=== PATIENT | male | born 1960 | race African-American/Black ===

== ENCOUNTER 2024-04-29 19:08 | Inpatient (IN) | payer MEDICAID ==
[~2024-04-29] VITALS: Ht 172.7 cm; Wt 64.9 kg
[~2024-04-29 19:08] MED LIST: ASPI-1406 MT; NAPR-1176 MT; QUET300T2 PO
[2024-04-29 20:00] VITALS: BP 104/61; PULSE 118; RESP 20; TEMP 36.9; O2SAT 98
[2024-04-29 20:07] LABS: HEMATOCRIT. 30.5 % (42.0-52.0); HEMOGLOBIN. 10.1 g/dL (14.0-18.0); MEAN CORPUSCULAR HEMOGLOBIN 32.7 pg (28.0-32.0); MEAN CORPUSCULAR HGB CONC 33.2 g/dL (31.0-37.0); MEAN CORPUSCULAR VOLUME 98.3 fL (80.0-94.0); MEAN PLATELET VOLUME 7.6 fl (7.4-10.4); PLATELET 515 x1000/uL (130-400); RED CELL DISTRIBUTION WIDTH 13.5 % (11.6-14.6); WHITE BLOOD COUNT 27.3 x1000/uL (4.5-11.0)
[2024-04-29 20:10] LABS: DIFFERENTIAL COMMENT 1
[2024-04-29 20:14] LABS: CHLORIDE 109 mEq/L (98-107)
[2024-04-29 20:15] LABS: POTASSIUM 3.2 mEq/L (3.5-5.1); SODIUM 141 mEq/L (136-145)
[2024-04-29 20:16] LABS: CARBON DIOXIDE 16 mEq/L (21-32)
[2024-04-29 20:21] LABS: CREATININE 0.6 mg/dL (0.6-1.3); GLUCOSE 112 mg/dL (70-105); UREA NITROGEN BLOOD 11 mg/dL (9-23)
[2024-04-29 20:22] LABS: TROPONIN I HIGH SENSITIVITY 12 ng/L (3.0-53)
[2024-04-29 20:27] LABS: D-DIMER 5.22 mg/L FEU (<0.50); PROTHROMBIN TIME 10.8 sec (9.6-11.0)
[2024-04-29] MEDS ORDERED: HYDROMORPHONE HCL/PF 2MG/ML INJ IV NR (20:30)
[2024-04-29 20:32] LABS: PLATELET ESTIMATE SLIGHTLY INCREASED
[2024-04-29] MEDS: HYDROMORPHONE HCL/PF 1MG/ML INJ IV NR (20:57)
[2024-04-29] MEDS ORDERED: ONDANSETRON HCL 4MG/2ML INJ IV PRN (22:30)
[2024-04-29 22:40] LABS: TROPONIN I HIGH SENSITIVITY 15 ng/L (3.0-53)
[2024-04-29] MEDS ORDERED: NALOXONE HCL 0.4MG/ML VIAL IV PRN (22:45)
[2024-04-29] MEDS: SODIUM CHLORIDE 0.9% 1,000 ML IV SCH (22:50)
[2024-04-29] MEDS: VANCOMYCIN 1.5GM/250ML 250 ML IV NR (22:50)
[2024-04-29 23:10] VITALS: BP 165/95; PULSE 118; RESP 20; TEMP 36.9
[2024-04-29] MEDS: SODIUM CHLORIDE 0.9% (SEPSIS BOLUS) IV ONE (23:30)
[2024-04-29] MEDS: MORPHINE SULFATE 2 MG/ML INJ (NOT FOR IM USE) IV PRN (23:58)
[2024-04-29] MEDS: PIPERACILLIN/TAZO 3.375G/50ML 50 ML IV ONE (23:59)
[2024-04-29] MEDS: VANCOMYCIN 1.25GM/250ML 250 ML IV SCH (23:59)
[2024-04-30] MEDS: ZOLPIDEM TARTRATE 5MG TABLET PO PRN (00:58)
[2024-04-30] MEDS: HYDROCODONE/ACETAMINOPHEN 5/325MG TABLET PO PRN (00:58)
[2024-04-30] MEDS: DIPHENHYDRAMINE 50MG/ML VIAL IV PRN (01:28)
[2024-04-30 03:19] LABS: LACTIC ACID 2.5 mmol/L (0.4-2.0)
[2024-04-30 04:00] VITALS: BP 104/61; PULSE 65; RESP 20; TEMP 37.2; O2SAT 98
[2024-04-30] MEDS: HYDROCODONE/ACETAMINOPHEN 10/325MG TABLET PO PRN (04:36)
[2024-04-30] MEDS: ACETAMINOPHEN 325MG TABLET PO PRN (04:43)
[2024-04-30 07:47] LABS: HEMATOCRIT. 32.6 % (42.0-52.0); HEMOGLOBIN. 10.7 g/dL (14.0-18.0); MEAN CORPUSCULAR HEMOGLOBIN 32.1 pg (28.0-32.0); MEAN CORPUSCULAR HGB CONC 32.8 g/dL (31.0-37.0); MEAN CORPUSCULAR VOLUME 97.8 fL (80.0-94.0); MEAN PLATELET VOLUME 8.3 fl (7.4-10.4); PLATELET 593 x1000/uL (130-400); RED BLOOD CELL COUNT 3.33 mill/uL (4.7-6.1); RED CELL DISTRIBUTION WIDTH 13.3 % (11.6-14.6); WHITE BLOOD COUNT 33.6 x1000/uL (4.5-11.0)
[2024-04-30 07:55] LABS: CHLORIDE 107 mEq/L (98-107); POTASSIUM 3.7 mEq/L (3.5-5.1); SODIUM 139 mEq/L (136-145)
[2024-04-30 07:56] LABS: CALCIUM 9.3 mg/dL (8.7-10.4); CARBON DIOXIDE 21 mEq/L (21-32); DIFFERENTIAL COMMENT 1
[2024-04-30 08:00] VITALS: BP 111/85; PULSE 99; RESP 17; TEMP 36.6; O2SAT 95
[2024-04-30] MEDS ORDERED: VANCOMYCIN 1GM/200ML PMX (BAXTER) IV SCH (08:00)
[2024-04-30 08:01] LABS: CREATININE 0.6 mg/dL (0.6-1.3); GLUCOSE 106 mg/dL (70-105); UREA NITROGEN BLOOD 10 mg/dL (9-23)
[2024-04-30] MEDS: ENOXAPARIN 80MG/0.8ML SYR SUBCUT SCH (08:35)
[2024-04-30] MEDS: ASPIRIN 81MG EC TABLET PO SCH (08:35)
[2024-04-30] MEDS: PANTOPRAZOLE SODIUM 40 MG/VIAL IV SCH (09:17)
[2024-04-30 10:21] LABS: PLATELET ESTIMATE INCREASED
[2024-04-30] MEDS: VANCOMYCIN 1G PREMIX 200 ML IV SCH (11:51)
[2024-04-30 12:00] VITALS: BP 136/63; PULSE 99; RESP 18; TEMP 36.1; O2SAT 95
[2024-04-30 16:00] VITALS: BP 148/78; PULSE 98; RESP 17; TEMP 36.1; O2SAT 95
[2024-04-30 20:00] VITALS: BP 150/64; PULSE 83; RESP 17; TEMP 37.1; O2SAT 98
[2024-04-30] MEDS ORDERED: QUETIAPINE FUMARATE 50MG TABLET PO SCH (21:00)
[2024-04-30] MEDS ORDERED: SERTRALINE HCL 100MG TABLET PO SCH (22:07)
[2024-04-30] MEDS: PIPERACILLIN/TAZO 3.375G/50ML 50 ML IV SCH (23:23)
[2024-05-01] VITALS: BP 137/73; PULSE 107; RESP 17; TEMP 37.1; O2SAT 95
[2024-05-01 08:12] LABS: HEMATOCRIT. 30.8 % (42.0-52.0); HEMOGLOBIN. 10.2 g/dL (14.0-18.0); MEAN CORPUSCULAR HEMOGLOBIN 32.4 pg (28.0-32.0); MEAN CORPUSCULAR HGB CONC 33.1 g/dL (31.0-37.0); MEAN CORPUSCULAR VOLUME 97.9 fL (80.0-94.0); MEAN PLATELET VOLUME 8.5 fl (7.4-10.4); PLATELET 588 x1000/uL (130-400); RED BLOOD CELL COUNT 3.15 mill/uL (4.7-6.1); RED CELL DISTRIBUTION WIDTH 13.6 % (11.6-14.6); WHITE BLOOD COUNT 35.3 x1000/uL (4.5-11.0)
[2024-05-01 08:19] LABS: CHLORIDE 109 mEq/L (98-107); POTASSIUM 3.7 mEq/L (3.5-5.1); SODIUM 140 mEq/L (136-145)
[2024-05-01 08:20] LABS: CARBON DIOXIDE 22 mEq/L (21-32)
[2024-05-01 08:21] LABS: CALCIUM 9.1 mg/dL (8.7-10.4)
[2024-05-01 08:25] LABS: CREATININE 0.6 mg/dL (0.6-1.3); GLUCOSE 103 mg/dL (70-105); UREA NITROGEN BLOOD 13 mg/dL (9-23)
[2024-05-01 08:54] LABS: DIFFERENTIAL COMMENT 1
[2024-05-01 10:57] LABS: PLATELET ESTIMATE INCREASED
[2024-05-01 12:00] VITALS: BP 108/63; PULSE 117; RESP 19; TEMP 36.9; O2SAT 70
[2024-05-01 15:38] LABS: BG BASE EXCESS -5.7 mmol/L (-2.0-3.0); BG CARBOXYHEMOGLOBIN 0.3 % (0.5-1.5); BG DEOXYHEMOGLOBIN 1.4 % (0.0-5.0); BG FRACTION INSPIRED OXYGEN 100; BG HCO3 ACT 17.1 mmol/L (21.0-28.0); BG METHEMOGLOBIN 0.3 % (0.5-1.5); BG OXYGEN SATURATION 98.6 % (94.0-98.0); BG PCO2 25.3 mmHg (35.0-48.0); BG PH 7.447 (7.350-7.450); BG PO2 121.9 mmHg (83.0-108.0); BG SAMPLE SITE LEFT RADIAL; BG TOTAL HEMOGLOBIN 10.4 g/dL (13.5-17.5); BG VENT MODE MASK - NRB
[2024-05-01 16:00] VITALS: BP 93/81; PULSE 102; RESP 24; TEMP 36.3; O2SAT 100
[2024-05-01 18:00] VITALS: BP 146/85; PULSE 96; RESP 21; O2SAT 97
[2024-05-01 20:00] VITALS: BP 138/78; TEMP 36.6
[2024-05-01] MEDS: QUETIAPINE FUMARATE 200MG TABLET PO SCH (20:34)
[2024-05-01 22:00] VITALS: BP 122/66; PULSE 150; RESP 21; O2SAT 94
[2024-05-01] MEDS: HYDROMORPHONE HCL/PF 1MG/ML INJ IV PRN (22:33)
[2024-05-01] MEDS: VANCOMYCIN 1G PREMIX 200 ML IV SCH (22:38)
[2024-05-02] VITALS (15 sets, daily range): BP systolic 126–199; BP diastolic 8–91; PULSE 14–145; RESP 18–35; TEMP 36.7–38.3; O2SAT 80–100
[2024-05-02 10:49] LABS: CHLORIDE 109 mEq/L (98-107)
[2024-05-02 10:50] LABS: CARBON DIOXIDE 22 mEq/L (21-32); POTASSIUM 3.7 mEq/L (3.5-5.1); SODIUM 141 mEq/L (136-145)
[2024-05-02 10:51] LABS: CALCIUM 8.9 mg/dL (8.7-10.4)
[2024-05-02 10:56] LABS: CREATININE 0.6 mg/dL (0.6-1.3); GLUCOSE 100 mg/dL (70-105); UREA NITROGEN BLOOD 11 mg/dL (9-23)
[2024-05-02 10:57] LABS: HEMATOCRIT. 28.4 % (42.0-52.0); HEMOGLOBIN. 9.4 g/dL (14.0-18.0); MEAN CORPUSCULAR HEMOGLOBIN 32.2 pg (28.0-32.0); MEAN CORPUSCULAR VOLUME 97.5 fL (80.0-94.0); MEAN PLATELET VOLUME 7.9 fl (7.4-10.4); PLATELET 271 x1000/uL (130-400); RED BLOOD CELL COUNT 2.91 mill/uL (4.7-6.1); RED CELL DISTRIBUTION WIDTH 13.6 % (11.6-14.6); WHITE BLOOD COUNT 24.2 x1000/uL (4.5-11.0)
[2024-05-02 11:18] LABS: DIFFERENTIAL COMMENT 1
[2024-05-02] MEDS: HYDROMORPHONE HCL/PF 1MG/ML INJ IV PRN (12:25)
[2024-05-02 14:17] LABS: BG BASE EXCESS -4.5 mmol/L (-2.0-3.0); BG CARBOXYHEMOGLOBIN 0.3 % (0.5-1.5); BG DEOXYHEMOGLOBIN 10.5 % (0.0-5.0); BG FRACTION INSPIRED OXYGEN 100; BG HCO3 ACT 18.4 mmol/L (21.0-28.0); BG METHEMOGLOBIN 0.3 % (0.5-1.5); BG OXYGEN SATURATION 89.4 % (94.0-98.0); BG OXYHEMOGLOBIN 88.9 % (94.0-98.0); BG PCO2 27.3 mmHg (35.0-48.0); BG PH 7.447 (7.350-7.450); BG PO2 58.1 mmHg (83.0-108.0); BG SAMPLE SITE RIGHT RADIAL; BG TOTAL HEMOGLOBIN 10.4 g/dL (13.5-17.5); BG VENT MODE MASK - NRB
[2024-05-02] MEDS: IOHEXOL-350 100 ML BOTTLE ONE (14:59)
[2024-05-02] MEDS: LOSARTAN 50 MG TABLET PO NR (16:43)
[2024-05-02 18:12] LABS: BG BASE EXCESS -2.2 mmol/L (-2.0-3.0); BG CARBOXYHEMOGLOBIN 0.7 % (0.5-1.5); BG DEOXYHEMOGLOBIN 14.1 % (0.0-5.0); BG FRACTION INSPIRED OXYGEN 100; BG HCO3 ACT 20.8 mmol/L (21.0-28.0); BG METHEMOGLOBIN 0.1 % (0.5-1.5); BG OXYGEN SATURATION 85.8 % (94.0-98.0); BG OXYHEMOGLOBIN 85.1 % (94.0-98.0); BG PCO2 29.7 mmHg (35.0-48.0); BG PH 7.463 (7.350-7.450); BG SAMPLE SITE LEFT BRACHIAL; BG TOTAL HEMOGLOBIN 10.3 g/dL (13.5-17.5); BG VENT MODE HIGH FLOW
[2024-05-02] MEDS: ATORVASTATIN CALCIUM 40MG TABLET PO SCH (20:16)
[2024-05-02 20:57] LABS: PLATELET ESTIMATE NORMAL
[2024-05-03] VITALS (83 sets, daily range): BP systolic 65–157; BP diastolic 18–94; PULSE 74–153; RESP 13–37; TEMP 36.2–37.7; O2SAT 87–100
[2024-05-03] MEDS: NOREPINEPHRINE 8MG/250ML PMX 250 ML IV PRN (01:08)
[2024-05-03] MEDS: PROPOFOL 10MG/ML 100ML 100 ML IV PRN (01:08)
[2024-05-03] MEDS: FENTANYL 2500MCG/250ML PMX 250 ML IV PRN (01:21)
[2024-05-03] MEDS: VASOPRESSIN 20 UNIT in SODIUM CHLORIDE 0.9% 99 ML IV PRN (01:21)
[2024-05-03 01:24] LABS: BG BASE EXCESS -8.9 mmol/L (-2.0-3.0); BG CARBOXYHEMOGLOBIN 0.7 % (0.5-1.5); BG DEOXYHEMOGLOBIN 8.3 % (0.0-5.0); BG FRACTION INSPIRED OXYGEN 100; BG HCO3 ACT 22.1 mmol/L (21.0-28.0); BG METHEMOGLOBIN 0.1 % (0.5-1.5); BG OXYGEN SATURATION 91.6 % (94.0-98.0); BG OXYHEMOGLOBIN 90.9 % (94.0-98.0); BG PH 7.059 (7.350-7.450); BG PO2 90.9 mmHg (83.0-108.0); BG SAMPLE SITE RIGHT RADIAL; BG TOTAL HEMOGLOBIN 10.3 g/dL (13.5-17.5); BG TOTAL RESPIRATORY RATE 18 b/min; BG VENT MODE VENT - AC
[2024-05-03 02:14] LABS: HEMATOCRIT 24.3 % (42.0-52.0); HEMOGLOBIN 7.8 g/dL (14.0-18.0); MEAN CORPUSCULAR HEMOGLOBIN 31.1 pg (28.0-32.0); MEAN CORPUSCULAR VOLUME 97.1 fL (80.0-94.0); PLATELET 170 x1000/uL (130-400); WHITE BLOOD COUNT 28.4 x1000/uL (4.5-11.0)
[2024-05-03 02:29] LABS: CHLORIDE 107 mEq/L (98-107); POTASSIUM 3.8 mEq/L (3.5-5.1); SODIUM 139 mEq/L (136-145)
[2024-05-03 02:30] LABS: CALCIUM 8.3 mg/dL (8.7-10.4); CARBON DIOXIDE 24 mEq/L (21-32)
[2024-05-03 02:35] LABS: CREATININE 0.8 mg/dL (0.6-1.3); GLUCOSE 195 mg/dL (70-105); UREA NITROGEN BLOOD 11 mg/dL (9-23)
[2024-05-03 02:36] LABS: CREATINE KINASE MB FRACTION 13.8 ng/mL (0.5-3.6)
[2024-05-03 02:37] LABS: PHOSPHORUS 5.4 mg/dL (2.5-4.9)
[2024-05-03 03:24] LABS: BG BASE EXCESS -5.4 mmol/L (-2.0-3.0); BG CARBOXYHEMOGLOBIN 0.8 % (0.5-1.5); BG DEOXYHEMOGLOBIN 0.8 % (0.0-5.0); BG FRACTION INSPIRED OXYGEN 100; BG METHEMOGLOBIN 0.3 % (0.5-1.5); BG OXYGEN SATURATION 99.2 % (94.0-98.0); BG OXYHEMOGLOBIN 98.1 % (94.0-98.0); BG PCO2 38.6 mmHg (35.0-48.0); BG PH 7.332 (7.350-7.450); BG PO2 148.1 mmHg (83.0-108.0); BG SAMPLE SITE RIGHT RADIAL; BG TOTAL HEMOGLOBIN 7.8 g/dL (13.5-17.5); BG TOTAL RESPIRATORY RATE 26 b/min; BG VENT MODE VENT - AC
[2024-05-03 06:52] LABS: CARBON DIOXIDE 22 mEq/L (21-32); CHLORIDE 109 mEq/L (98-107); POTASSIUM 3.7 mEq/L (3.5-5.1); SODIUM 140 mEq/L (136-145)
[2024-05-03 06:58] LABS: CREATININE 0.7 mg/dL (0.6-1.3); GLUCOSE 142 mg/dL (70-105); UREA NITROGEN BLOOD 11 mg/dL (9-23)
[2024-05-03] MEDS ORDERED: ETOMIDATE 2MG/ML 10ML VIAL IV ONE (07:22)
[2024-05-03] MEDS ORDERED: CALCIUM CHLORIDE 1GM/10ML SYR IV ONE (07:43)
[2024-05-03] MEDS: LOSARTAN 50 MG TABLET PO SCH (08:12)
[2024-05-03] MEDS ORDERED: DEXAMETHASONE 10 MG/ML VIAL IV SCH (12:00)
[2024-05-03 12:57] LABS: BG BASE EXCESS -3.7 mmol/L (-2.0-3.0); BG CARBOXYHEMOGLOBIN 0.4 % (0.5-1.5); BG DEOXYHEMOGLOBIN 0.3 % (0.0-5.0); BG FRACTION INSPIRED OXYGEN 100; BG HCO3 ACT 19.6 mmol/L (21.0-28.0); BG METHEMOGLOBIN 0.2 % (0.5-1.5); BG OXYGEN SATURATION 99.7 % (94.0-98.0); BG OXYHEMOGLOBIN 99.1 % (94.0-98.0); BG PCO2 28.1 mmHg (35.0-48.0); BG PH 7.461 (7.350-7.450); BG PO2 234.6 mmHg (83.0-108.0); BG SAMPLE SITE LEFT RADIAL; BG TOTAL HEMOGLOBIN 7.5 g/dL (13.5-17.5); BG TOTAL RESPIRATORY RATE 30 b/min; BG VENT MODE VENT - AC
[2024-05-03] MEDS: HYDROCORTISONE SOD SUCCINATE 100 MG/2 ML VIAL IV SCH (15:12)
[2024-05-03] MEDS: VANCOMYCIN 1.25GM/250ML 250 ML IV SCH (21:33)
[2024-05-04] VITALS (82 sets, daily range): BP systolic 103–142; BP diastolic 63–95; PULSE 61–111; RESP 12–28; TEMP 36.9–37.1; O2SAT 93–100
[2024-05-04] MEDS: PROPOFOL 10MG/ML 100ML 100 ML IV PRN (06:32)
[2024-05-04 13:59] LABS: BG BASE EXCESS -3.8 mmol/L (-2.0-3.0); BG CARBOXYHEMOGLOBIN 0.7 % (0.5-1.5); BG DEOXYHEMOGLOBIN 9.7 % (0.0-5.0); BG FRACTION INSPIRED OXYGEN 50; BG HCO3 ACT 20.1 mmol/L (21.0-28.0); BG METHEMOGLOBIN 0.1 % (0.5-1.5); BG OXYGEN SATURATION 90.2 % (94.0-98.0); BG OXYHEMOGLOBIN 89.5 % (94.0-98.0); BG PCO2 31.6 mmHg (35.0-48.0); BG PH 7.421 (7.350-7.450); BG PO2 59.4 mmHg (83.0-108.0); BG SAMPLE SITE RIGHT RADIAL; BG TOTAL HEMOGLOBIN 7.9 g/dL (13.5-17.5); BG VENT MODE VENT - AC
[2024-05-04] MEDS: AZITHROMYCIN 500MG/250ML 250 ML IV SCH (15:50)
[2024-05-04] MEDS: ENOXAPARIN 60MG/0.6ML SYR SUBCUT SCH (21:34)
[2024-05-05] VITALS (102 sets, daily range): BP systolic 50–163; BP diastolic 71–124; PULSE 52–99; RESP 11–40; TEMP 36.3–36.9; O2SAT 95–100
[2024-05-05] MEDS: TAMSULOSIN HCL 0.4MG SR CAPSULE PO SCH (08:23)
[2024-05-05] MEDS: FINASTERIDE 5MG TABLET PO SCH (08:23)
[2024-05-05] MEDS: IPRATROPIUM/ALBUTEROL 0.5-3(2.5)MG/3ML NEB NEB PRN (08:49)
[2024-05-05] MEDS: ACETYLCYSTEINE 200MG/ML 20% VIAL 4ML INH SCH (08:49)
[2024-05-05] MEDS: PROPOFOL 10MG/ML 100ML 100 ML IV PRN (09:07)
[2024-05-05 13:28] LABS: BG BASE EXCESS -4.7 mmol/L (-2.0-3.0); BG CARBOXYHEMOGLOBIN 0.3 % (0.5-1.5); BG DEOXYHEMOGLOBIN 2.3 % (0.0-5.0); BG FRACTION INSPIRED OXYGEN 50; BG HCO3 ACT 19.9 mmol/L (21.0-28.0); BG METHEMOGLOBIN 0.3 % (0.5-1.5); BG OXYGEN SATURATION 97.7 % (94.0-98.0); BG OXYHEMOGLOBIN 97.1 % (94.0-98.0); BG PCO2 34.7 mmHg (35.0-48.0); BG PH 7.377 (7.350-7.450); BG PO2 101.7 mmHg (83.0-108.0); BG SAMPLE SITE RIGHT RADIAL; BG TOTAL HEMOGLOBIN 8.8 g/dL (13.5-17.5); BG VENT MODE VENT - AC
[2024-05-05] MEDS: DEXMEDETOMIDINE 400 MCG/100 ML 100 ML IV PRN (13:49)
[2024-05-06] VITALS (113 sets, daily range): BP systolic 114–178; BP diastolic 62–99; PULSE 51–130; RESP 13–34; TEMP 36.4–37; O2SAT 90–100
[2024-05-06] MEDS: HYDRALAZINE 20MG/ML VIAL IV PRN (06:51)
[2024-05-06 14:32] LABS: BG BASE EXCESS -4.7 mmol/L (-2.0-3.0); BG CARBOXYHEMOGLOBIN 0.3 % (0.5-1.5); BG DEOXYHEMOGLOBIN 2.8 % (0.0-5.0); BG FRACTION INSPIRED OXYGEN 40; BG HCO3 ACT 18.6 mmol/L (21.0-28.0); BG METHEMOGLOBIN 0.3 % (0.5-1.5); BG OXYGEN SATURATION 97.2 % (94.0-98.0); BG OXYHEMOGLOBIN 96.6 % (94.0-98.0); BG PCO2 28.1 mmHg (35.0-48.0); BG PH 7.438 (7.350-7.450); BG PO2 97.4 mmHg (83.0-108.0); BG SAMPLE SITE RIGHT RADIAL; BG TOTAL HEMOGLOBIN 9.6 g/dL (13.5-17.5); BG VENT MODE VENT - CPAP
[2024-05-06] MEDS: VANCOMYCIN 750MG PREMIX 150 ML IV SCH (17:40)
[2024-05-06] MEDS: AMLODIPINE 5MG TABLET PO SCH (21:26)
[2024-05-07] VITALS (50 sets, daily range): BP systolic 125–167; BP diastolic 63–90; PULSE 74–104; RESP 15–32; TEMP 36.7–37.2; O2SAT 86–98
[2024-05-07 13:04] LABS: BG BASE EXCESS -0.2 mmol/L (-2.0-3.0); BG CARBOXYHEMOGLOBIN 0.6 % (0.5-1.5); BG DEOXYHEMOGLOBIN 10.1 % (0.0-5.0); BG FRACTION INSPIRED OXYGEN 44; BG HCO3 ACT 21.2 mmol/L (21.0-28.0); BG METHEMOGLOBIN 0.1 % (0.5-1.5); BG OXYGEN SATURATION 89.8 % (94.0-98.0); BG OXYHEMOGLOBIN 89.2 % (94.0-98.0); BG PCO2 23.7 mmHg (35.0-48.0); BG PO2 52.9 mmHg (83.0-108.0); BG SAMPLE SITE RIGHT RADIAL; BG TOTAL HEMOGLOBIN 8.6 g/dL (13.5-17.5); BG VENT MODE NASAL CANNULA
[2024-05-07] MEDS: HYDROMORPHONE HCL/PF 1MG/ML INJ IV PRN (13:08)
[2024-05-07] MEDS: HYDROCORTISONE SOD SUCCINATE 100 MG/2 ML VIAL IV SCH (13:16)
[2024-05-07] MEDS: LACTOBACILLUS GG CAPSULE PO SCH (18:06)
[2024-05-07] MEDS: MELATONIN 3MG TABLET PO SCH (20:21)
[2024-05-08] VITALS (9 sets, daily range): BP systolic 142–164; BP diastolic 60–80; PULSE 80–103; RESP 19–28; TEMP 36.3–37.1; O2SAT 86–98
[2024-05-08 07:20] LABS: CALCIUM 7.7 mg/dL (8.7-10.4); CARBON DIOXIDE 25 mEq/L (21-32); CHLORIDE 110 mEq/L (98-107); SODIUM 147 mEq/L (136-145)
[2024-05-08 07:25] LABS: CREATININE 0.6 mg/dL (0.6-1.3); GLUCOSE 129 mg/dL (70-105)
[2024-05-08 07:26] LABS: UREA NITROGEN BLOOD 10 mg/dL (9-23)
[2024-05-08 08:13] LABS: POTASSIUM 1.9 mEq/L (3.5-5.1)
[2024-05-08 08:19] LABS: HEMATOCRIT. 25.9 % (42.0-52.0); HEMOGLOBIN. 8.5 g/dL (14.0-18.0); MEAN CORPUSCULAR HEMOGLOBIN 31.3 pg (28.0-32.0); MEAN CORPUSCULAR HGB CONC 32.8 g/dL (31.0-37.0); MEAN CORPUSCULAR VOLUME 95.7 fL (80.0-94.0); MEAN PLATELET VOLUME 8.7 fl (7.4-10.4); PLATELET 298 x1000/uL (130-400); RED CELL DISTRIBUTION WIDTH 13.9 % (11.6-14.6); WHITE BLOOD COUNT 27.9 x1000/uL (4.5-11.0)
[2024-05-08 08:48] LABS: DIFFERENTIAL COMMENT 1
[2024-05-08] MEDS: POTASSIUM CHLORIDE 20MEQ/PACKET PO NR ×2 (11:45→17:25)
[2024-05-08 15:19] LABS: CHLORIDE 111 mEq/L (98-107)
[2024-05-08 15:20] LABS: CARBON DIOXIDE 25 mEq/L (21-32)
[2024-05-08 15:21] LABS: CALCIUM 7.6 mg/dL (8.7-10.4)
[2024-05-08 15:25] LABS: CREATININE 0.6 mg/dL (0.6-1.3); GLUCOSE 135 mg/dL (70-105)
[2024-05-08 15:26] LABS: UREA NITROGEN BLOOD 11 mg/dL (9-23)
[2024-05-08 15:39] LABS: SODIUM 147 mEq/L (136-145)
[2024-05-08] MEDS: CLONIDINE 0.1MG TABLET PO PRN (17:40)
[2024-05-08] MEDS: MORPHINE SULFATE 2 MG/ML INJ (NOT FOR IM USE) IV PRN (18:50)
[2024-05-08 18:54] LABS: CHLORIDE 111 mEq/L (98-107); SODIUM 147 mEq/L (136-145)
[2024-05-08 18:55] LABS: CARBON DIOXIDE 25 mEq/L (21-32)
[2024-05-08 18:56] LABS: CALCIUM 7.7 mg/dL (8.7-10.4)
[2024-05-08 19:00] LABS: CREATININE 0.6 mg/dL (0.6-1.3); GLUCOSE 116 mg/dL (70-105)
[2024-05-08 19:01] LABS: UREA NITROGEN BLOOD 10 mg/dL (9-23)
[2024-05-08 19:10] LABS: POTASSIUM 2.3 mEq/L (3.5-5.1)
[2024-05-08] MEDS ORDERED: POTASSIUM CHLORIDE 40 MEQ in DEXT 5% WATER 230 ML IV ONE (19:30)
[2024-05-08] MEDS: HYDROCORTISONE SOD SUCCINATE 100 MG/2 ML VIAL IV SCH (20:28)
[2024-05-08] MEDS: POTASSIUM CHLORIDE 20MEQ TABLET SR PO NR (20:35)
[2024-05-08 21:59] LABS: BG BASE EXCESS 3.8 mmol/L (-2.0-3.0); BG CARBOXYHEMOGLOBIN 0.9 % (0.5-1.5); BG DEOXYHEMOGLOBIN 15.5 % (0.0-5.0); BG FRACTION INSPIRED OXYGEN 60; BG HCO3 ACT 25.3 mmol/L (21.0-28.0); BG METHEMOGLOBIN 0.1 % (0.5-1.5); BG OXYGEN SATURATION 84.3 % (94.0-98.0); BG OXYHEMOGLOBIN 83.5 % (94.0-98.0); BG PCO2 26.9 mmHg (35.0-48.0); BG PH 7.591 (7.350-7.450); BG PO2 46.2 mmHg (83.0-108.0); BG SAMPLE SITE LEFT RADIAL; BG TOTAL HEMOGLOBIN 8.6 g/dL (13.5-17.5); BG VENT MODE MASK - SIMPLE
[2024-05-08] MEDS: KCL 20MEQ/100ML PREMIX 100 ML IV SCH (22:29)
[2024-05-09] VITALS (17 sets, daily range): BP systolic 122–162; BP diastolic 62–99; PULSE 77–97; RESP 17–27; TEMP 36.3–37.1; O2SAT 72–100
[2024-05-09 09:06] LABS: BG BASE EXCESS 2.4 mmol/L (-2.0-3.0); BG CARBOXYHEMOGLOBIN 0.2 % (0.5-1.5); BG FRACTION INSPIRED OXYGEN 100; BG HCO3 ACT 24.1 mmol/L (21.0-28.0); BG METHEMOGLOBIN 0.3 % (0.5-1.5); BG OXYGEN SATURATION 89.9 % (94.0-98.0); BG OXYHEMOGLOBIN 89.5 % (94.0-98.0); BG PCO2 26.5 mmHg (35.0-48.0); BG PH 7.577 (7.350-7.450); BG PO2 56.1 mmHg (83.0-108.0); BG SAMPLE SITE RIGHT RADIAL; BG TOTAL HEMOGLOBIN 8.2 g/dL (13.5-17.5); BG VENT MODE HIGH FLOW
[2024-05-09 16:57] LABS: HEMATOCRIT. 27.1 % (42.0-52.0); HEMOGLOBIN. 8.7 g/dL (14.0-18.0); MEAN CORPUSCULAR HEMOGLOBIN 31.3 pg (28.0-32.0); MEAN CORPUSCULAR VOLUME 97.7 fL (80.0-94.0); PLATELET 376 x1000/uL (130-400); RED BLOOD CELL COUNT 2.78 mill/uL (4.7-6.1); RED CELL DISTRIBUTION WIDTH 14.2 % (11.6-14.6); WHITE BLOOD COUNT 32.8 x1000/uL (4.5-11.0)
[2024-05-09 17:05] LABS: CHLORIDE 108 mEq/L (98-107); DIFFERENTIAL COMMENT 1; SODIUM 147 mEq/L (136-145)
[2024-05-09 17:06] LABS: CALCIUM 8.2 mg/dL (8.7-10.4); CARBON DIOXIDE 26 mEq/L (21-32)
[2024-05-09 17:11] LABS: CREATININE 0.7 mg/dL (0.6-1.3); GLUCOSE 101 mg/dL (70-105); UREA NITROGEN BLOOD 9 mg/dL (9-23)
[2024-05-09 17:21] LABS: POTASSIUM 2.1 mEq/L (3.5-5.1)
[2024-05-09] MEDS ORDERED: POTASSIUM CHLORIDE 40 MEQ in DEXT 5% WATER 230 ML IV ONE (17:30)
[2024-05-09] MEDS: POTASSIUM CHLORIDE 20MEQ/PACKET PO SCH (18:36)
[2024-05-09] MEDS: POTASSIUM CHLORIDE 40 MEQ in DEXT 5% WATER 250 ML IV NR (19:02)
[2024-05-10] VITALS (15 sets, daily range): BP systolic 104–159; BP diastolic 48–81; PULSE 74–101; RESP 18–25; TEMP 36.8–37.1; O2SAT 88–100
[2024-05-10 01:45] LABS: PLATELET ESTIMATE NORMAL
[2024-05-10 08:46] LABS: ANISOCYTOSIS 1+; PLATELET ESTIMATE NORMAL
[2024-05-10 08:52] LABS: BG BASE EXCESS 3.9 mmol/L (-2.0-3.0); BG CARBOXYHEMOGLOBIN 0.8 % (0.5-1.5); BG DEOXYHEMOGLOBIN 21.7 % (0.0-5.0); BG FRACTION INSPIRED OXYGEN 100; BG HCO3 ACT 25.4 mmol/L (21.0-28.0); BG METHEMOGLOBIN 0.3 % (0.5-1.5); BG OXYGEN SATURATION 78.1 % (94.0-98.0); BG OXYHEMOGLOBIN 77.2 % (94.0-98.0); BG PCO2 27.5 mmHg (35.0-48.0); BG PH 7.584 (7.350-7.450); BG PO2 39.7 mmHg (83.0-108.0); BG SAMPLE SITE RIGHT RADIAL; BG TOTAL HEMOGLOBIN 9.1 g/dL (13.5-17.5); BG VENT MODE HIGH FLOW
[2024-05-10 12:02] LABS: CALCIUM 7.7 mg/dL (8.7-10.4); CARBON DIOXIDE 27 mEq/L (21-32); CHLORIDE 111 mEq/L (98-107); SODIUM 146 mEq/L (136-145)
[2024-05-10 12:08] LABS: CREATININE 0.6 mg/dL (0.6-1.3); GLUCOSE 98 mg/dL (70-105); UREA NITROGEN BLOOD 10 mg/dL (9-23)
[2024-05-10 13:12] LABS: POTASSIUM 2.7 mEq/L (3.5-5.1)
[2024-05-10] MEDS ORDERED: KCL 20MEQ/100ML PREMIX 100 ML IV SCH (14:00)
[2024-05-10] MEDS: FUROSEMIDE 20MG/2ML VIAL IVP NR (14:40)
[2024-05-10] MEDS: METHYLPREDNISOLONE SOD SUCC 125MG/2ML (ACT-O-VIAL) IV SCH (14:41)
[2024-05-10 14:58] LABS: BG BASE EXCESS 2.2 mmol/L (-2.0-3.0); BG CARBOXYHEMOGLOBIN 0.9 % (0.5-1.5); BG DEOXYHEMOGLOBIN 14.8 % (0.0-5.0); BG FRACTION INSPIRED OXYGEN 100; BG HCO3 ACT 24.4 mmol/L (21.0-28.0); BG OXYGEN SATURATION 85.1 % (94.0-98.0); BG OXYHEMOGLOBIN 84.3 % (94.0-98.0); BG PCO2 29.2 mmHg (35.0-48.0); BG PO2 48.6 mmHg (83.0-108.0); BG SAMPLE SITE RIGHT BRACHIAL; BG TOTAL HEMOGLOBIN 8.9 g/dL (13.5-17.5); BG VENT MODE HIGH FLOW
[2024-05-10] MEDS: ACETYLCYSTEINE 200MG/ML 20% VIAL 4ML INH SCH (15:18)
[2024-05-10] MEDS: IPRATROPIUM/ALBUTEROL 0.5-3(2.5)MG/3ML NEB HHN SCH (15:19)
[2024-05-10] MEDS: POTASSIUM CHLORIDE 40MEQ in DEXT 5% WATER 250ML IV NR (17:22)
[2024-05-11] VITALS (21 sets, daily range): BP systolic 113–157; BP diastolic 64–87; PULSE 73–91; RESP 13–27; TEMP 36.4–37.1; O2SAT 93–100
[2024-05-11 17:13] LABS: HEMATOCRIT. 26.6 % (42.0-52.0); HEMOGLOBIN. 8.5 g/dL (14.0-18.0); MEAN CORPUSCULAR HEMOGLOBIN 30.9 pg (28.0-32.0); MEAN CORPUSCULAR HGB CONC 32.1 g/dL (31.0-37.0); MEAN CORPUSCULAR VOLUME 96.4 fL (80.0-94.0); MEAN PLATELET VOLUME 8.5 fl (7.4-10.4); PLATELET 489 x1000/uL (130-400); RED BLOOD CELL COUNT 2.76 mill/uL (4.7-6.1); RED CELL DISTRIBUTION WIDTH 14.4 % (11.6-14.6); WHITE BLOOD COUNT 33.9 x1000/uL (4.5-11.0)
[2024-05-11 17:15] LABS: DIFFERENTIAL COMMENT 1
[2024-05-11 17:16] LABS: CHLORIDE 106 mEq/L (98-107); POTASSIUM 3.1 mEq/L (3.5-5.1); SODIUM 143 mEq/L (136-145)
[2024-05-11 17:17] LABS: CALCIUM 8.3 mg/dL (8.7-10.4); CARBON DIOXIDE 28 mEq/L (21-32)
[2024-05-11 17:22] LABS: CREATININE 0.8 mg/dL (0.6-1.3); GLUCOSE 123 mg/dL (70-105); UREA NITROGEN BLOOD 16 mg/dL (9-23)
[2024-05-11] MEDS ORDERED: IPRATROPIUM/ALBUTEROL 0.5-3(2.5)MG/3ML NEB HHN PRN (17:30)
[2024-05-11 19:26] LABS: ANISOCYTOSIS 1+; PLATELET ESTIMATE INCREASED
[2024-05-12] VITALS (17 sets, daily range): BP systolic 115–158; BP diastolic 50–88; PULSE 66–97; RESP 15–23; TEMP 36.5–37.3; O2SAT 92–100
[2024-05-12] MEDS: POTASSIUM CHLORIDE 20MEQ/PACKET PO NR ×3 (06:50→20:08)
[2024-05-12] MEDS: MAGNESIUM 2 G PREMIX 50 ML IV NR (07:01)
[2024-05-12 09:06] LABS: BG BASE EXCESS 3.1 mmol/L (-2.0-3.0); BG CARBOXYHEMOGLOBIN 0.6 % (0.5-1.5); BG DEOXYHEMOGLOBIN 6.4 % (0.0-5.0); BG FRACTION INSPIRED OXYGEN 90; BG HCO3 ACT 25.4 mmol/L (21.0-28.0); BG METHEMOGLOBIN 0.3 % (0.5-1.5); BG OXYGEN SATURATION 93.5 % (94.0-98.0); BG OXYHEMOGLOBIN 92.7 % (94.0-98.0); BG PH 7.546 (7.350-7.450); BG PO2 62.8 mmHg (83.0-108.0); BG SAMPLE SITE RIGHT RADIAL; BG TOTAL HEMOGLOBIN 8.6 g/dL (13.5-17.5); BG VENT MODE HIGH FLOW
[2024-05-12] MEDS: AMIODARONE 200MG TABLET PO SCH (12:22)
[2024-05-12 17:02] LABS: CHLORIDE 106 mEq/L (98-107); SODIUM 144 mEq/L (136-145)
[2024-05-12 17:03] LABS: CALCIUM 8.3 mg/dL (8.7-10.4); CARBON DIOXIDE 25 mEq/L (21-32)
[2024-05-12 17:08] LABS: CREATININE 0.7 mg/dL (0.6-1.3); GLUCOSE 147 mg/dL (70-105); UREA NITROGEN BLOOD 18 mg/dL (9-23)
[2024-05-12 17:10] LABS: ALBUMIN 3.3 g/dL (3.2-4.8); PREALBUMIN 13.8 mg/dl (10.0-40.0)
[2024-05-12] MEDS: MORPHINE SULFATE 4 MG/ML INJ (FOR IV/IM USE) IV PRN (17:12)
[2024-05-12 17:13] LABS: HEMATOCRIT. 26.4 % (42.0-52.0); HEMOGLOBIN. 8.3 g/dL (14.0-18.0); MEAN CORPUSCULAR HGB CONC 31.4 g/dL (31.0-37.0); MEAN CORPUSCULAR VOLUME 95.4 fL (80.0-94.0); MEAN PLATELET VOLUME 9.1 fl (7.4-10.4); PLATELET 541 x1000/uL (130-400); RED BLOOD CELL COUNT 2.77 mill/uL (4.7-6.1); RED CELL DISTRIBUTION WIDTH 14.5 % (11.6-14.6); WHITE BLOOD COUNT 34.8 x1000/uL (4.5-11.0)
[2024-05-12 17:17] LABS: DIFFERENTIAL COMMENT 1
[2024-05-12 17:22] LABS: POTASSIUM 2.7 mEq/L (3.5-5.1)
[2024-05-13] VITALS (18 sets, daily range): BP systolic 134–164; BP diastolic 60–94; PULSE 66–91; RESP 13–23; TEMP 36.4–37.5; O2SAT 89–98
[2024-05-13 00:16] LABS: ANISOCYTOSIS 1+; PLATELET ESTIMATE INCREASED
[2024-05-13 22:32] LABS: HEMATOCRIT. 24.1 % (42.0-52.0); HEMOGLOBIN. 8.1 g/dL (14.0-18.0); MEAN CORPUSCULAR HEMOGLOBIN 31.2 pg (28.0-32.0); MEAN CORPUSCULAR HGB CONC 33.5 g/dL (31.0-37.0); MEAN CORPUSCULAR VOLUME 93.2 fL (80.0-94.0); MEAN PLATELET VOLUME 7.8 fl (7.4-10.4); PLATELET 513 x1000/uL (130-400); RED BLOOD CELL COUNT 2.59 mill/uL (4.7-6.1); RED CELL DISTRIBUTION WIDTH 14.6 % (11.6-14.6); WHITE BLOOD COUNT 30.3 x1000/uL (4.5-11.0)
[2024-05-13 22:38] LABS: CHLORIDE 109 mEq/L (98-107); POTASSIUM 3.3 mEq/L (3.5-5.1); SODIUM 142 mEq/L (136-145)
[2024-05-13 22:39] LABS: CARBON DIOXIDE 25 mEq/L (21-32); DIFFERENTIAL COMMENT 1
[2024-05-13 22:40] LABS: CALCIUM 7.9 mg/dL (8.7-10.4)
[2024-05-13 22:44] LABS: CREATININE 0.6 mg/dL (0.6-1.3); GLUCOSE 153 mg/dL (70-105); UREA NITROGEN BLOOD 20 mg/dL (9-23)
[2024-05-13 23:17] LABS: PLATELET ESTIMATE INCREASED
[2024-05-14] VITALS (18 sets, daily range): BP systolic 117–158; BP diastolic 63–93; PULSE 61–110; RESP 13–20; TEMP 36.5–37; O2SAT 92–100
[2024-05-14 09:06] LABS: BG CARBOXYHEMOGLOBIN 0.9 % (0.5-1.5); BG DEOXYHEMOGLOBIN 7.9 % (0.0-5.0); BG FRACTION INSPIRED OXYGEN 80; BG METHEMOGLOBIN 0.3 % (0.5-1.5); BG OXYHEMOGLOBIN 90.9 % (94.0-98.0); BG PCO2 30.2 mmHg (35.0-48.0); BG PH 7.499 (7.350-7.450); BG PO2 62.6 mmHg (83.0-108.0); BG SAMPLE SITE RIGHT RADIAL; BG TOTAL HEMOGLOBIN 7.9 g/dL (13.5-17.5); BG VENT MODE HIGH FLOW
[2024-05-14] MEDS: POTASSIUM CHLORIDE 20MEQ/PACKET PO NR (09:57)
[2024-05-14 11:22] LABS: HEMATOCRIT. 27.3 % (42.0-52.0); HEMOGLOBIN. 8.9 g/dL (14.0-18.0); MEAN CORPUSCULAR HEMOGLOBIN 30.8 pg (28.0-32.0); MEAN CORPUSCULAR HGB CONC 32.6 g/dL (31.0-37.0); MEAN CORPUSCULAR VOLUME 94.7 fL (80.0-94.0); MEAN PLATELET VOLUME 8.3 fl (7.4-10.4); PLATELET 562 x1000/uL (130-400); RED BLOOD CELL COUNT 2.89 mill/uL (4.7-6.1); RED CELL DISTRIBUTION WIDTH 14.7 % (11.6-14.6); WHITE BLOOD COUNT 28.6 x1000/uL (4.5-11.0)
[2024-05-14 11:37] LABS: DIFFERENTIAL COMMENT 1
[2024-05-14 11:38] LABS: CHLORIDE 108 mEq/L (98-107); SODIUM 143 mEq/L (136-145)
[2024-05-14 11:39] LABS: CARBON DIOXIDE 24 mEq/L (21-32)
[2024-05-14 11:40] LABS: CALCIUM 8.2 mg/dL (8.7-10.4)
[2024-05-14 11:44] LABS: CREATININE 0.7 mg/dL (0.6-1.3); GLUCOSE 211 mg/dL (70-105); UREA NITROGEN BLOOD 18 mg/dL (9-23)
[2024-05-14 19:50] LABS: PLATELET ESTIMATE INCREASED
[2024-05-14] MEDS ORDERED: KCL 20MEQ/100ML PREMIX 100 ML IV ONE ×2 (21:15→21:30)
[2024-05-14] MEDS: POTASSIUM CHLORIDE 60 MEQ in SODIUM CHLORIDE 0.9% 500 ML IV NR (22:45)
[2024-05-14] MEDS ORDERED: IOHEXOL-350 100 ML BOTTLE ONE (23:23)
[2024-05-15] VITALS (17 sets, daily range): BP systolic 136–171; BP diastolic 72–80; PULSE 61–86; RESP 12–24; TEMP 36.4–37.1; O2SAT 94–100
[2024-05-15] MEDS: POTASSIUM CHLORIDE 20MEQ/PACKET PO NR (12:25)
[2024-05-15] MEDS: POTASSIUM CHLORIDE 20MEQ/PACKET PO SCH (15:15)
[2024-05-15] MEDS ORDERED: NALOXONE HCL 0.4MG/ML VIAL IV PRN (21:45)
[2024-05-15] MEDS: HYDROMORPHONE HCL/PF 1MG/ML INJ IV PRN (23:05)
[2024-05-16] VITALS (16 sets, daily range): BP systolic 122–164; BP diastolic 75–91; PULSE 64–105; RESP 10–22; TEMP 36.3–37.4; O2SAT 95–100
[2024-05-16 06:32] LABS: CARBON DIOXIDE 23 mEq/L (21-32); CHLORIDE 111 mEq/L (98-107); POTASSIUM 3.7 mEq/L (3.5-5.1); SODIUM 143 mEq/L (136-145)
[2024-05-16 06:34] LABS: CALCIUM 8.5 mg/dL (8.7-10.4)
[2024-05-16 06:37] LABS: CREATININE 0.6 mg/dL (0.6-1.3)
[2024-05-16 06:38] LABS: GLUCOSE 113 mg/dL (70-105); UREA NITROGEN BLOOD 17 mg/dL (9-23)
[2024-05-16 07:01] LABS: HEMATOCRIT. 27.5 % (42.0-52.0); HEMOGLOBIN. 8.9 g/dL (14.0-18.0); MEAN CORPUSCULAR HEMOGLOBIN 31.4 pg (28.0-32.0); MEAN CORPUSCULAR HGB CONC 32.5 g/dL (31.0-37.0); MEAN CORPUSCULAR VOLUME 96.6 fL (80.0-94.0); PLATELET 533 x1000/uL (130-400); RED BLOOD CELL COUNT 2.84 mill/uL (4.7-6.1); RED CELL DISTRIBUTION WIDTH 14.9 % (11.6-14.6); WHITE BLOOD COUNT 31.4 x1000/uL (4.5-11.0)
[2024-05-16 07:24] LABS: DIFFERENTIAL COMMENT 1
[2024-05-16 16:18] LABS: PLATELET ESTIMATE INCREASED
[2024-05-17] VITALS (18 sets, daily range): BP systolic 87–158; BP diastolic 55–88; PULSE 65–109; RESP 11–33; TEMP 36.3–38.2; O2SAT 87–100
[2024-05-17] MEDS: ENOXAPARIN 60MG/0.6ML SYR SUBCUT SCH (08:55)
[2024-05-17 12:04] LABS: CARBON DIOXIDE 21 mEq/L (21-32); CHLORIDE 111 mEq/L (98-107); POTASSIUM 3.5 mEq/L (3.5-5.1); SODIUM 143 mEq/L (136-145)
[2024-05-17 12:08] LABS: HEMATOCRIT. 29.3 % (42.0-52.0); HEMOGLOBIN. 9.4 g/dL (14.0-18.0); MEAN CORPUSCULAR HGB CONC 32.2 g/dL (31.0-37.0); MEAN CORPUSCULAR VOLUME 96.4 fL (80.0-94.0); MEAN PLATELET VOLUME 8.4 fl (7.4-10.4); PLATELET 556 x1000/uL (130-400); RED BLOOD CELL COUNT 3.04 mill/uL (4.7-6.1); RED CELL DISTRIBUTION WIDTH 15.4 % (11.6-14.6); WHITE BLOOD COUNT 27.6 x1000/uL (4.5-11.0)
[2024-05-17 12:10] LABS: CREATININE 0.6 mg/dL (0.6-1.3); GLUCOSE 149 mg/dL (70-105); UREA NITROGEN BLOOD 16 mg/dL (9-23)
[2024-05-17 12:12] LABS: DIFFERENTIAL COMMENT 1
[2024-05-17 15:10] LABS: PLATELET ESTIMATE SLIGHTLY INCREASED
[2024-05-17] MEDS: IPRATROPIUM/ALBUTEROL 0.5-3(2.5)MG/3ML NEB HHN SCH (20:15)
[2024-05-17] MEDS: SODIUM CHLORIDE 0.9% 500 ML IV ONE (22:42)
[2024-05-18] VITALS (18 sets, daily range): BP systolic 80–149; BP diastolic 44–110; PULSE 77–126; RESP 16–35; TEMP 36.5–38.3; O2SAT 81–95
[2024-05-18] MEDS: ACETYLCYSTEINE 200MG/ML 20% VIAL 4ML INH SCH (00:54)
[2024-05-18] MEDS: HYDROCODONE/ACETAMINOPHEN 10/325MG TABLET PO PRN (02:13)
[2024-05-19] VITALS (68 sets, daily range): BP systolic 60–255; BP diastolic 11–97; PULSE 89–137; RESP 16–110; TEMP 36.8–38.2; O2SAT 29–100
[2024-05-19 01:30] LABS: BG BASE EXCESS -5.2 mmol/L (-2.0-3.0); BG CARBOXYHEMOGLOBIN 0.9 % (0.5-1.5); BG DEOXYHEMOGLOBIN 18.2 % (0.0-5.0); BG FRACTION INSPIRED OXYGEN 100; BG HCO3 ACT 17.4 mmol/L (21.0-28.0); BG METHEMOGLOBIN 0.3 % (0.5-1.5); BG OXYGEN SATURATION 81.6 % (94.0-98.0); BG OXYHEMOGLOBIN 80.6 % (94.0-98.0); BG PCO2 24.6 mmHg (35.0-48.0); BG PH 7.468 (7.350-7.450); BG PO2 45.9 mmHg (83.0-108.0); BG SAMPLE SITE RIGHT RADIAL; BG VENT MODE HIGH FLOW
[2024-05-19] MEDS: LORAZEPAM 2MG/ML INJ IV NR (02:21)
[2024-05-19 03:59] LABS: BG CARBOXYHEMOGLOBIN 0.2 % (0.5-1.5); BG DEOXYHEMOGLOBIN 1.6 % (0.0-5.0); BG FRACTION INSPIRED OXYGEN 100; BG METHEMOGLOBIN 0.3 % (0.5-1.5); BG OXYGEN SATURATION 98.4 % (94.0-98.0); BG OXYHEMOGLOBIN 97.9 % (94.0-98.0); BG PH 7.405 (7.350-7.450); BG PO2 117.7 mmHg (83.0-108.0); BG SAMPLE SITE RIGHT RADIAL; BG TOTAL HEMOGLOBIN 8.6 g/dL (13.5-17.5); BG VENT MODE MASK - BIPAP
[2024-05-19] MEDS: NOREPINEPHRINE 8MG/250ML PMX 250 ML IV PRN (09:02)
[2024-05-19] MEDS: PROPOFOL 10MG/ML 100ML 100 ML IV PRN (09:11)
[2024-05-19] MEDS: DEXT 5%/0.9% NACL 1,000 ML IV SCH (09:30)
[2024-05-19 09:56] LABS: BG BASE EXCESS -8.1 mmol/L (-2.0-3.0); BG CARBOXYHEMOGLOBIN 1.7 % (0.5-1.5); BG DEOXYHEMOGLOBIN 6.3 % (0.0-5.0); BG FRACTION INSPIRED OXYGEN 100; BG METHEMOGLOBIN 0.3 % (0.5-1.5); BG OXYGEN SATURATION 93.6 % (94.0-98.0); BG OXYHEMOGLOBIN 91.7 % (94.0-98.0); BG PH 7.331 (7.350-7.450); BG PO2 75.6 mmHg (83.0-108.0); BG SAMPLE SITE LEFT BRACHIAL; BG TOTAL HEMOGLOBIN 7.4 g/dL (13.5-17.5); BG VENT MODE VENT - P/C
[2024-05-19] MEDS: POTASSIUM CHLORIDE 20MEQ/PACKET PO NR (10:32)
[2024-05-19] MEDS: FENTANYL CITRATE/PF 2,500 MCG in SODIUM CHLORIDE 0.9% 200 ML IV PRN (11:15)
[2024-05-19] MEDS: PHENYLEPHRINE 100 MG in DEXT 5% WATER 240 ML IV PRN (11:55)
[2024-05-19] MEDS: MIDAZOLAM 100MG/100ML PMX 100 ML IV PRN (11:55)
[2024-05-19] MEDS: MIDODRINE HCL 5MG TABLET NG SCH (13:21)
[2024-05-19 15:12] LABS: BG BASE EXCESS -9.1 mmol/L (-2.0-3.0); BG CARBOXYHEMOGLOBIN 0.3 % (0.5-1.5); BG DEOXYHEMOGLOBIN 8.6 % (0.0-5.0); BG FRACTION INSPIRED OXYGEN 100; BG HCO3 ACT 15.5 mmol/L (21.0-28.0); BG METHEMOGLOBIN 0.3 % (0.5-1.5); BG OXYGEN SATURATION 91.3 % (94.0-98.0); BG OXYHEMOGLOBIN 90.8 % (94.0-98.0); BG PCO2 28.5 mmHg (35.0-48.0); BG PH 7.354 (7.350-7.450); BG PO2 66.3 mmHg (83.0-108.0); BG SAMPLE SITE RIGHT RADIAL; BG TOTAL HEMOGLOBIN 7.3 g/dL (13.5-17.5); BG VENT MODE VENT - P/C
[2024-05-19 16:57] LABS: POTASSIUM 4.7 mEq/L (3.5-5.1)
[2024-05-19 16:58] LABS: CALCIUM 7.3 mg/dL (8.7-10.4)
[2024-05-19 17:04] LABS: CREATININE 1.8 mg/dL (0.6-1.3)
[2024-05-19] MEDS: NOREPINEPHRINE 32 MG in DEXT 5% WATER 218 ML IV PRN (17:32)
[2024-05-19] MEDS ORDERED: CEFEPIME 2GM IN DEXT 5% 100ML IV SCH (17:45)
[2024-05-19] MEDS ORDERED: SODIUM CHLORIDE 0.9% 100 ML IV ONE (17:45)
[2024-05-19] MEDS ORDERED: EPINEPHRINE 10 MG in SODIUM CHLORIDE 0.9% 240 ML IV PRN (18:00)
[2024-05-19] MEDS ORDERED: METRONIDAZOLE 500MG TABLET GT SCH (18:00)
[2024-05-19] MEDS ORDERED: SODIUM BICARBONATE 150 MEQ in SODIUM CHLORIDE 0.45% 850 ML IV SCH (19:00)
[2024-05-19] MEDS ORDERED: CEFEPIME 2GM/50ML DUPLEX 50 ML IV SCH (20:00)
[2024-05-19] MEDS ORDERED: VANCOMYCIN 1.25GM/250ML IV NR (20:00)
[2024-05-20] MEDS ORDERED: FINASTERIDE 5MG TABLET NG SCH (09:00)
[2024-05-20] MEDS ORDERED: VANCOMYCIN 500MG/100ML IV SCH (10:00)
== END 2024-05-19 18:21 | DRG 720 ==
LOC: ER 19:08 → 6EST 21:23 → EDBEDREQ 21:48 → EDBEDREQTM 21:48 → EDBEDREQSVC 21:48 → 5EST 05-01 13:40 → CVICU 05-03 → 3WST 05-07 17:16 → CVICU 05-07 17:34 → 3WST 05-07 18:18 → 5EST 05-09 10:25 → MICUSO 05-19 06:30
PROVIDERS: ADMIT Internal Medicine; ATTEND Internal Medicine
PROC: 5A0935A Assistance with Respiratory Ventilation, Less than 24 Consecutive Hours, High Flow/Velocity Cannula (ICD-10-PCS; 2024-05-02)
PROC: 5A1945Z Respiratory Ventilation, 24-96 Consecutive Hours (ICD-10-PCS; 2024-05-03)
PROC: 02HV33Z Insertion of Infusion Device into Superior Vena Cava, Percutaneous Approach (ICD-10-PCS; 2024-05-03)
PROC: B548ZZA Ultrasonography of Superior Vena Cava, Guidance (ICD-10-PCS; 2024-05-03)
PROC: 0BH17EZ Insertion of Endotracheal Airway into Trachea, Via Natural or Artificial Opening (ICD-10-PCS; 2024-05-03)
PROC: 5A0935A Assistance with Respiratory Ventilation, Less than 24 Consecutive Hours, High Flow/Velocity Cannula (ICD-10-PCS; 2024-05-08)
PROC: 5A0935A Assistance with Respiratory Ventilation, Less than 24 Consecutive Hours, High Flow/Velocity Cannula (ICD-10-PCS; 2024-05-09)
PROC: 5A0955A Assistance with Respiratory Ventilation, Greater than 96 Consecutive Hours, High Flow/Velocity Cannula (ICD-10-PCS; 2024-05-09)
PROC: 5A1935Z Respiratory Ventilation, Less than 24 Consecutive Hours (ICD-10-PCS; principal; 2024-05-19)
PROC: 5A12012 Performance of Cardiac Output, Single, Manual (ICD-10-PCS; 2024-05-19)
PROC: 05HY33Z Insertion of Infusion Device into Upper Vein, Percutaneous Approach (ICD-10-PCS; 2024-05-19)
PROC: 5A09357 Assistance with Respiratory Ventilation, Less than 24 Consecutive Hours, Continuous Positive Airway Pressure (ICD-10-PCS; 2024-05-19)
PROC: 0BH17EZ Insertion of Endotracheal Airway into Trachea, Via Natural or Artificial Opening (ICD-10-PCS; 2024-05-19)
DX: A41.9 Sepsis, unspecified organism (principal); J80 Acute respiratory distress syndrome; R65.21 Severe sepsis with septic shock; J18.9 Pneumonia, unspecified organism; G93.41 Metabolic encephalopathy; I82.431 Acute embolism and thrombosis of right popliteal vein; J44.0 Chronic obstructive pulmonary disease with (acute) lower respiratory infection; E87.20 Acidosis, unspecified; I73.9 Peripheral vascular disease, unspecified; I99.8 Other disorder of circulatory system; L03.115 Cellulitis of right lower limb; I10 Essential (primary) hypertension; C61 Malignant neoplasm of prostate; F17.210 Nicotine dependence, cigarettes, uncomplicated; R65.20 Severe sepsis without septic shock; F12.10 Cannabis abuse, uncomplicated; Y90.9 Presence of alcohol in blood, level not specified; E87.6 Hypokalemia; K59.00 Constipation, unspecified; Z53.29 Procedure and treatment not carried out because of patient's decision for other reasons; S30.0XXA Contusion of lower back and pelvis, initial encounter; X58.XXXA Exposure to other specified factors, initial encounter; I77.1 Stricture of artery; F10.10 Alcohol abuse, uncomplicated; D64.9 Anemia, unspecified; Z85.46 Personal history of malignant neoplasm of prostate; Z86.718 Personal history of other venous thrombosis and embolism; Z92.3 Personal history of irradiation; Y93.89 Activity, other specified; Y92.89 Other specified places as the place of occurrence of the external cause; Y99.8 Other external cause status
CPT/HCPCS: 31500; 36415; 36573; 36600; 71045; 71275; 72191; 73706; 80048; 80202; 82040; 82375; 82553; 82805; 82962; 83605; 83735; 83880; 84100; 84134; 84145; 84478; 84484; 85025; 85027; 85379; 87070; 93005; 93306; 93922; 93970; 94002; 94003; 94070; 94640; 94660; 94664; 94667; 97116; 97162; 97164; 98960; 99291; A4606; C1725; C1893; J0360; J0456; J0692; J1171; J1200; J1650; J1720; J1940; J2060; J2270; J2470; J2543; J2704; J2919; J3010; J3370; J3475; J3480; J3490; J7030; J7040; J7042; J7050; J7060; J7608; Q9957; Q9967